=== PATIENT | male | born 1985 | race Caucasian/White ===

== ENCOUNTER 2016-11-24 03:36 | Emergency (ER) | payer SELFPAY ==
[~2016-11-24] VITALS: Ht 177.8 cm; Wt 82.5 kg
[~2016-11-24 03:36] MED LIST: METH750T2 PO; PRED10PA PO; TRAM50 PO
[2016-11-24 03:38] VITALS: BP 130/82; PULSE 67; RESP 16; TEMP 97.8; O2SAT 99
[2016-11-24] MEDS ORDERED: SODIUM CHLORIDE 0.9% FLUSH 10 ML FLUSH IV FLUSH PRN (04:15)
[2016-11-24 04:27] LABS: AUTOMATED NEUTROPHIL # 8.3 TH/MM3 (1.8-7.7); BASOPHIL % 0.2 % (0.0-2.0); EOSINOPHIL # 0.1 TH/MM3 (0-0.4); EOSINOPHIL % 1.2 % (0.0-4.0); HEMATOCRIT 47.7 % (39.0-51.0); HEMO FLAGS DIFF FINAL; LYMPH % 15.4 % (9.0-44.0); LYMPHOCYTE # 1.7 TH/MM3 (1.0-4.8); MEAN CELL VOLUME 84.1 FL (80.0-100.0); MEAN CORPUSCULAR HEMOGLOBIN 28.7 PG (27.0-34.0); MEAN CORPUSCULAR HGB CONC 34.2 % (32.0-36.0); MONO % 8.1 % (0.0-8.0); NEUT % 75.1 % (16.0-70.0); PLATELET COUNT 195 TH/MM3 (150-450); RED BLOOD COUNT 5.67 MIL/MM3 (4.50-5.90); RED CELL DISTRIBUTION WIDTH 13.5 % (11.6-17.2)
[2016-11-24] MEDS ORDERED: ONDANSETRON HCL 4 MG/2 ML VIAL IV PUSH ONE (04:30)
[2016-11-24] MEDS ORDERED: MORPHINE SULFATE 4 MG/ML INJ IV PUSH ONE (04:30)
[2016-11-24] MEDS ORDERED: SODIUM CHLOR 0.9% 1000 ML INJ 1,000 ML IV ONE (04:30)
--- NOTE | 2016-11-24 04:37 | PD ---
HPI Chief Complaint: Abdominal Pain Time Seen by Provider: 04:01 Travel History International Travel<30 days: No Contact w/Intl Traveler<30days: No Traveled to known affect area: No History of Present Illness HPI Is a 31-year-old male presents emergency department complaining of right lower quadrant abdominal pain it's been ongoing for the past day or 2. States is been gradually worsening. He's had some queasiness but no real vomiting. Initially his bowel movements were "dry" and is been drinking more fluid and Gatorade and he's had a little bit of loose stools today. States the pain continued to worsen and he couldn't get to sleep tonight because of the pain. He seen a doctor one time in the past for some stomach problems with some nausea and pain. He saw a GI doctor ho initial evaluations were negative. He doesn't really have GI problems otherwise. No history of abdominal surgeries. No other medical history. History Past Medical History Medical History: Denies Significant Hx Tetanus Vaccination: Unknown Influenza Vaccination: No Social History Alcohol Use: Yes (RARELY) Tobacco Use: No Allergies-Medications (Allergen,Severity, Reaction): Coded Allergies: No Known Allergies (Verified , 11/24/16) Reported Meds & Prescriptions Reported Meds & Active Scripts Active No Active Prescriptions or Reported Medications Review of Systems Except as stated in HPI: all other systems reviewed are Neg Physical Exam Narrative GENERAL: Well-appearing 31 year-old woman, no acute distress. SKIN: Focused skin assessment warm/dry. NECK: Trachea midline. No JVD. CARDIOVASCULAR: Regular rate and rhythm. No murmur appreciated. RESPIRATORY: No accessory muscle use. Clear to auscultation. Breath sounds equal bilaterally. GASTROINTESTINAL: Abdomen is flat and soft. Mild right lower quadrant tenderness. No rebound or guarding. MUSCULOSKELETAL: No obvious deformities. No edema. NEUROLOGICAL: Awake and alert. No obvious cranial nerve deficits. Motor grossly within normal limits. Normal speech. Data Data Last Documented VS Vital Signs Date Time Temp Pulse Resp B/P Pulse Ox O2 Delivery O2 Flow Rate FiO2 11/24/16 03:38 97.8 67 16 130/82 99 Room Air Orders Complete Blood Count With Diff (11/24/16 04:02) Comprehensive Metabolic Panel (11/24/16 04:02) Lipase (11/24/16 04:02) Urinalysis - C+S If Indicated (11/24/16 04:02) Iv Access Insert/Monitor (11/24/16 04:02) NPO (11/24/16 04:02) Sodium Chloride 0.9% Flush (Ns Flush) (11/24/16 04:15) Morphine Inj (Morphine Inj) (11/24/16 04:30) Ondansetron Inj (Zofran Inj) (11/24/16 04:30) Sodium Chlor 0.9% 1000 Ml Inj (Ns 1000 M (11/24/16 04:30) Ct Abd/Pel W Iv Contrast(Rout) (11/24/16 04:48) Iohexol 350 Inj (Omnipaque 350 Inj) (11/24/16 04:59) Labs Laboratory Tests Test 11/24/16 04:13 White Blood Count 11.0 TH/MM3 Red Blood Count 5.67 MIL/MM3 Hemoglobin 16.3 GM/DL Hematocrit 47.7 % Mean Corpuscular Volume 84.1 FL Mean Corpuscular Hemoglobin 28.7 PG Mean Corpuscular Hemoglobin 34.2 % Concent Red Cell Distribution Width 13.5 % Platelet Count 195 TH/MM3 Mean Platelet Volume 9.7 FL Neutrophils (%) (Auto) 75.1 % Lymphocytes (%) (Auto) 15.4 % Monocytes (%) (Auto) 8.1 % Eosinophils (%) (Auto) 1.2 % Basophils (%) (Auto) 0.2 % Neutrophils # (Auto) 8.3 TH/MM3 Lymphocytes # (Auto) 1.7 TH/MM3 Monocytes # (Auto) 0.9 TH/MM3 Eosinophils # (Auto) 0.1 TH/MM3 Basophils # (Auto) 0.0 TH/MM3 CBC Comment DIFF FINAL Differential Comment Urine Color LIGHT-YELLOW Urine Turbidity CLEAR Urine pH 5.5 Urine Specific [place] 1.007 Urine Protein NEG mg/dL Urine Glucose (UA) NEG mg/dL Urine Ketones NEG mg/dL Urine Occult Blood NEG Urine Nitrite NEG Urine Bilirubin NEG Urine Urobilinogen LESS THAN 2.0 MG/DL Urine Leukocyte Esterase NEG Urine WBC 1 /hpf Urine Mucus FEW /lpf Microscopic Urinalysis Comment CULT NOT INDICATED Sodium Level 139 MEQ/L Potassium Level 3.6 MEQ/L Chloride Level 103 MEQ/L Carbon Dioxide Level 30.6 MEQ/L Anion Gap 5 MEQ/L Blood Urea Nitrogen 9 MG/DL Creatinine 1.01 MG/DL Estimat Glomerular Filtration 86 ML/MIN Rate Random Glucose 92 MG/DL Calcium Level 9.4 MG/DL Total Bilirubin 0.7 MG/DL Aspartate Amino Transf 20 U/L (AST/SGOT) Alanine Aminotransferase 21 U/L (ALT/SGPT) Alkaline Phosphatase 66 U/L Total Protein 8.2 GM/DL Albumin 4.6 GM/DL Lipase 145 U/L [facility] Medical Decision Making Medical Screen Exam Complete: Yes Emergency Medical Condition: Yes Interpretation(s) LABS: CBC unremarkable. CMP unremarkable. Lipase is normal. CT abdomen and pelvis: Small amount of free fluid in the pelvis. Otherwise negative. Differential Diagnosis Renal lithiasis, appendicitis, inflammatory bowel disease, constipation, other Narrative Course Medical decision making INITIAL: 31 year-old woman right lower quadrant abdominal pain, moderate tenderness, history is somewhat consistent with appendicitis. Renal lithiasis also possible. We'll check labs, urine, CT imaging, reassess. Diagnosis Primary Impression: Abdominal pain Qualified Code: R10.31 - Right lower quadrant abdominal pain Additional Instructions: Take Bentyl as needed for abdominal pain. Return to the emergency department for any new or worsening symptoms. Follow-up with your primary doctor if you're not feeling completely well in the next 2-3 days. Med/Other Pt SpecificInfo: Prescription(s) given Scripts Dicyclomine (Bentyl)20 Mg Tab20 Mg PO QID PRN (ABDOMINAL CRAMPING) #20 TAB Prov:Brendon Rojas MD 11/24/16 Disposition: 01 DISCHARGE HOME Condition: Stable Brendon Rojas MD November 24, 2016 04:37
[2016-11-24 04:39] LABS: BLOOD, URINE NEG (NEG); COMMENT (UR) CULT NOT INDICATED; CULTURE IF INDICATED CULT NOT INDICATED; GLUCOSE,URINE NEG (NEG); KETONE, URINE NEG (NEG); MUCUS URINE FEW /lpf (OCC); NITRITE,URINE NEG (NEG); PH, URINE 5.5 (5.0-8.5); URINE COLOR LIGHT-YELLOW (YELLW/STRAW)
[2016-11-24 04:47] LABS: ALT (GPT) 21 U/L (12-78); ANION GAP 5 MEQ/L (5-15); AST (GOT) 20 U/L (15-37); BICARBONATE 30.6 MEQ/L (21.0-32.0); BLOOD UREA NITROGEN 9 MG/DL (7-18); CHLORIDE 103 MEQ/L (98-107); GLOMERULAR FILTRATION RATE 86 ML/MIN (>89); POTASSIUM 3.6 MEQ/L (3.5-5.1); SODIUM (NA) 139 MEQ/L (136-145)
[2016-11-24 04:49] LABS: ALKALINE PHOSPHATASE 66 U/L (45-117); TOTAL BILIRUBIN ADULT 0.7 MG/DL (0.2-1.0)
[2016-11-24] MEDS ORDERED: IOHEXOL 350 MG/ML 10 ML VIAL (for RAD DIAG) IV ONE (04:59)
--- NOTE | 2016-11-24 05:15 | RADRPT ---
EXAM DATE/TIME: 11/24/2016 04:59 [facility] COMPARISON: CT ABDOMEN & PELVIS W CONTRAST, February 23, 2008, 22:36. INDICATIONS : Right sided abdominal pain. IV CONTRAST: 90 cc Omnipaque 350 (iohexol) IV ORAL CONTRAST: No oral contrast ingested. RADIATION DOSE: 7.44 CTDIvol (mGy) MEDICAL HISTORY : None SURGICAL HISTORY : None. ENCOUNTER: Initial ACUITY: 2 days PAIN SCALE: 5/10 LOCATION: Right abdomen TECHNIQUE: Volumetric scanning of the abdomen and pelvis was performed. Using automated exposure control and ad justment of the mA and/or kV according to patient size, radiation dose was kept as low as reasonably achievable to obtain optimal diagnostic quality images. FINDINGS: LOWER LUNGS: The visualized lower lungs are clear. LIVER: Homogeneous density without lesion. There is no dilation of the biliary tree. No calcified gallston es. SPLEEN: Normal size without lesion. PANCREAS: Within normal limits. KIDNEYS: Normal in size and shape. There is no mass, stone or hydronephrosis. ADRENAL GLANDS: Within normal limits. VASCULAR: There is no aortic aneurysm. BOWEL/MESENTERY: The stomach, small bowel, and colon demonstrate no acute abnormality. There is no free intraperitone al air. A small amount of free fluid within the pelvis. Scattered colonic diverticuli without acute i nflammation. ABDOMINAL WALL: Within normal limits. RETROPERITONEUM: There is no lymphadenopathy. BLADDER: No wall thickening or mass. REPRODUCTIVE: Within normal limits. INGUINAL: There is no lymphadenopathy or hernia. MUSCULOSKELETAL: Within normal limits for patient age. CONCLUSION: 1. Small amount of free fluid deep within the pelvis. Otherwise, unremarkable exam. Rodrigo Isaacs Jr., MD on November 24, 2016 at 5:10 Board Certified Radiologist. This report was verified electronically.
[2016-11-24] MEDS ORDERED: BENT20TA PO (05:33)
== END 2016-11-24 06:00 | disposition home or self-care (01) ==
LOC: NEPE 03:36
DX: R10.31 Right lower quadrant pain (principal)
CPT/HCPCS: 74177; 80053; 81001; 83690; 85025; 96374; 96375; 99284; J2270; J2405; J7030; Q9967